=== PATIENT | female | born 1950 | race Caucasian/White ===

== ENCOUNTER 2024-04-20 13:24 | Emergency (ER) | payer MEDICARE, SELFPAY ==
--- OUTSIDE RECORDS SUMMARY | 2024-04-20 13:26 | XMS_ITS | Clinical Summary ---
Author Organization [facility] Address [address] [place] [id number] Care Team Providers Care Security Assurance Analyst Name Role Phone She Moscoso MD Primary Care Provider [phone] Allergies No known active allergies Medications meloxicam 15 mg tabletIndication s:Acute left ankle pain Take 1 Tablet (15 mg) by mouth once daily. 30 Tablet 04/03/2024 Active Active Problems Problem Noted Date Diagnosed Date Paroxysmal SVT (supraventricular tachycardia) Hyperlipidemia 11/07/2023 Family history of aortic aneurysm 11/07/2023 Prediabetes 08/21/2020 Routine general medical exam ination at a health care facility 03/21/2006 Encounters Date Type Department Care Team Description 04/03/2024 1:10 PM SPINNING LATHE OPERATOR AUTOMATIC Ancillary Procedure [facility] [address] [facility] [address] [place] [address] 04/03/2024 1:00 PM SPINNING LATHE OPERATOR AUTOMATIC Office Visit [facility] [address] [facility] [address] [place] [address] Kath Wright PA Ankle Injury (Left ankle DOI: 03/25/2024) 04/03/2024 Travel 03/15/2024 3:20 PM SPINNING LATHE OPERATOR AUTOMATIC Ancillary Procedure [facility] [address] [place] [address] 03/14/2024 Travel from Last 3 Months Immunizations Name Administration Dates Next Due COVID-19 vaccine (Moderna 10 0mcg/0.5mL) PF, MDV 05/29/2020,04/29/2020 HepA-HepB (Twinrix) 09/19/2008,04/04/2008,2007 Influenza, High-dose Quadriv alent Inactivated 12/05/2022,12/31/2021,12/21/2020 Influenza, IIV3 (Age >=3 years) 01/01/2008 Influenza, IIV4 02/17/2017 Influenza, Inactivated AIIV4 (Age 65+ Years) Preserv Free 11/11/2019 Influenza, Inactivated IIV3 (Age 65+ Years) Preserv Free 11/07/2023 Pneumococcal Conj 20-valent (Prevnar 20) 023 Pneumococcal Poly,23-Valent (Pneumovax) 08/22/19 21 Td (Age >=7 Years) 01/17/2002 Tdap 12/05/2022,04/03/2012 Yellow Fever 01/01/2008 Zoster (Shingrix-RZV, recombinant) 12/21/2020, Family History Medical History Relation Name Comments Good Health Brother Cancer Father Esophageal Canc er Heart Disease Father Triple Bypass Aortic aneurysm Maternal Grandfather Other Mother aortic aneurysm Stroke Mother aortic aneurysm 2002 Heart Disease Paternal Grandfather pacema ker Cancer-colon Paternal Uncle Cancer-breast No Family History Cancer-ovarian No Family History Relation Name Status Comments Brother Alive Father (Age 78) esophageal cancer Maternal Aunt (Age 70s) aneurysm . Maternal Grandfather (Age 70s) a neurysm Mother aortic aneurysm (Age 82) aortic aneurysm Paternal Grandfather Paternal Uncle Social History Tobacco Use Types Packs/Day Years Used Date Smoking Tobacco: Never Smokeless Tobacco: Never Tobacco Cessation:Counseling Given: Yes Alcohol Use Standard Drinks/Week Comments Yes 4 (1 standard drink = 0.6 oz pur e alcohol) PHQ-2 Answer Date Recorded PHQ-2 TOTAL SCORE 0 11/07/2023 Social Connections Answer Date Recorded Do you often feel lonely or isolated from those around you? 0 11/07/2023 Financial Resource Strain Answer Date R ecorded Difficulty of Paying Living Expenses 3 11/07/2023 Difficulty of Paying Living Expenses Not on file 11/07/2023 Food Insecurity Answer Date Recorded Do you worry your food will run out before you are able to buy more? 1 11/07/2023 Transportation Needs Answer Date Record ed Does lack of transportation keep you from medica l appointments? 1 11/07/2023 Does lack of transportation keep you from work, meetings or getting things that you need? 1 11/07/2023 Housing Stability Answer Date Recorded What is your housing situation today? 1 11/07/2023 Utilities Answer Date Recorded Do you have trouble paying f or utilities (for example, heat, electricity, water, phone)? 1 11/07/2023 Comments No Sex and Gender Information Value Date Recorded Sex Assigned at Not on file Legal Sex Female 5:24 AM SPINNING LATHE OPERATOR [employer]OMATIC Gender Identity Not on file Sexual Orientation Not on file Occupation Industry Job Start Date Job End Date [employer] Not on file Not on file Not on file Obstetrics History Para Term AB IAB SAB Ectopic Multiple Livin g Live Births 0 0 0 0 0 0 0 0 0 0 Last Filed Vital Signs Vital Sign Reading Time Taken Comments Blood Pressure 109/69 11/07/2023 1:23 PM CDT Pulse 78 11/07/2023 1:23 PM CDT Temperature 36.5 C (97.7 F) 07/10/2017 8:44 AM CDT Respiratory Rate 14 09/27/2016 10:18 AM CDT Oxygen Saturation 97% 11/07/2023 1:23 PM CDT Inhaled Oxygen Concentration - - Weight 59.1 kg (130 lb 6.4 oz) 11/07/2023 1:23 P M CDT Height 168.6 cm (5' 6.38) 11/07/2023 1:23 PM CD T Body Mass Index 20.81 11/07/2023 1:23 PM CDT Plan of Treatment Health Maintenance Due Date Last Done Comments BMI (ht and wt on same day) for age 18+ 11/06/2024 11/07/2023, 10/13/2022, 08/21/2020, Additional history exists Depression screening for age 12+ 11/06/2024 11/07/2023, 10/13/2022, 08/24/2020, Additional history exists Medicare Wellness for age 65+ 11/07/2024 11/07/2023, 10/13/2022 Mammogram for age 45-75 03/15/2025 03/15/19, 02/10/2023, 12/08/2021, Additional history exists Fecal testing sDNA-FIT ([facility]) for age 45-75 06/02/2025 06/02/2022 RSV vaccine for adults or (1 - 1-dose 75+ series) 11/10/2027 Lipids for age 45-75 11/06/2028 11/07/2023, 10/13/2022, 08/21/2020, Additional history exists Tetanus booster 12/05/2032 12/05/2022, 06/2012, 01/17/2002 Hepatitis C screening for ag e 18-79 Completed 08/21/2020 DEXA/DXA scan for age 65+ Completed 08/24/2020 Zoster (shingles) series for age 50+ Completed 12/21/2020, 08/21/2020 Pneumococcal series for age 50+ Completed , 08/21/2020 Tdap Completed 12/05/2022, 04/03/2012 Influenza for age 65+ Completed 11/07/2023 , 12/05/2022, 12/31/2021, Additional history exists COVID-19 vaccine series Completed 11/10/19, 12/05/2022, 02/11/2022, Additional history exists Procedures Procedure Name Priority Date/Time Associated Diagnosis Comments XR ANKLE 3 VIEWS LEFT Routine 04/03/2024 1:17 PM SPINNING LATHE OPERATOR [employer]OMATIC Acute left ankle pain XR MAMMO NOREEN BILAT SCREEN Routine 03/15/2024 3:25 PM SPINNING LATHE OPERATOR AUTOMATIC Visit for screening mammogram LIPID PANEL W REFLEX MEASURED LDL Routine 11/07/2023 2:15 PM CDT Hyperlipidemia, unspecified hyperlipidemia type SDNA-FIT EXTERNAL (COLOGUARD) Routine 06/02/2022 8:35 AM CDT Screening for colon cancer XR DXA BONE DENSITY 2 SITES AXIAL Routine 08/24/2020 2:20 PM CDT Postmenopausal ANTI HCV Routine 08/21/2020 9:17 AM CDT Need for hepatitis C screening test from Last 3 Months or Most Recently Relevant to Health Maintenance Results * XR ANKLE 3 VIEWS LEFT (04/03/2024 1:17 PM SPINNING LATHE OPERATOR AUTOMATIC) Anatomical Region Laterality Modality ANKLES, ANKLE L Digital Radiogra phy 04/04/2024 3:29 AM SPINNING LATHE OPERATOR AUTOMATIC Impressions 04/04/2024 3:29 AM SPINNING LATHE OPERATOR AUTOMATIC Lateral soft tissue swelling with a possible subtle nondisplaced fracture in the inferior tip of the lateral malleolus. Dictated by Gem Shay MD @ 04/04/2024 3:29:34 AM (Electronically Signed) Narrative 04/04/2024 3:29 AM SPINNING LATHE OPERATOR AUTOMATIC For Patients: As a result of the Cures Act, medical imaging exams and procedure reports are released immediately into your electronic medical record. You may view this report before your referring provider. If you have questions, please contact your health care provider. INDICATION: Acute left ankle pain. TECHNIQUE: Left ankle 3 view. COMPARISON: None. FINDINGS: Bones: There is a subtle linear lucency in the inferior tip of the lateral malleolus. Small Achilles calcaneal spur. Alignment is normal. Joint spaces: Probable ankle joint effusion. Soft tissues: Soft tissue swelling adjacent to the lateral malleolus. Procedure Note Gem Shay MD - 04/04/2024 For Patients: As a result of the Cures Act, medical imagingexams and procedure reports are released immediately into your electronicmedical record. You may view this report before your referring provider.If you have questions, please contact your health care provider. INDICATION: Acute left ankle pain. TECHNIQUE: Left ankle 3 view. COMPARISON: None. FINDINGS: Bones: There is a subtle linear lucency in the inferior tip of the lateralmalleolus. Small Achilles calcaneal spur. Alignment is normal. Joint spaces: Probable ankle joint effusion. Soft tissues: Soft tissue swelling adjacent to the lateral malleolus. IMPRESSION: Lateral soft tissue swelling with a possible subtle nondisplaced fracturein the inferior tip of the lateral malleolus. Dictated by Gem Shay MD @ 04/04/2024 3:29:34 AM (Electronically Signed) us Kath [facility] Final Resu lt * XR MAMMO NOREEN BILAT SCREEN (03/15/2024 3:25 PM SPINNING LATHE OPERATOR AUTOMATIC) Anatomical Region Laterality Modality BREASTS, Breast Left, Breast Right Bilateral Mammography Impressions 03/15/2024 3:30 PM SPINNING LATHE OPERATOR AUTOMATIC There is no radiographic evidence for malignancy. Recommend annual mammograms. MAMMOGRAM ASSESSMENT: ACR 1 Negative PATIENTS: You will also receive a letter with your examination results in an easy to read format. If you have questions about your results, please contact your referring provider. Narrative 03/15/2024 3:30 PM SPINNING LATHE OPERATOR AUTOMATIC For Patients: As a result of the Cures Act, medical imaging exams and procedure reports are released immediately into your electronic medical record. You may view this report before your referring provider. If you have questions, please contact your health care provider. XR MAMMO NOREEN BILAT SCREEN [[id number]] CLINICAL HISTORY: This is an asymptomatic 73 y.o. patient. INDICATION FOR EXAM: Mammogram Screening. TECHNIQUE: CC & MLO views were obtained. This study was evaluated with the assistance of Computer-Aided Detection. Breast Tomosynthesis was used in interpretation. COMPARISON FILM: Yes 02/10/23 [facility] FINDINGS: The breasts are heterogeneously dense, which may obscure small masses. There are no dominant masses, suspicious micro calcifications or areas of architectural distortion. us She Moscoso MD MAMMO Final Resul t * (ABNORMAL) LIPID PANEL W REFLEX MEASURED LDL (11/07/2023 2:15 PM CDT) CHOLESTEROL,TOTAL 224(H) 100 - 199 mg/dL 11/08/2023 3:48 AM CDT [facility] Comment: Cholesterol, Total Reference Ranges Desirable <200 mg/dL Borderline 200-239 mg/dL High >=240 mg/dL TRIGLYCERIDES 136 <150 mg/dL 11/08/2023 3:48 AM CDT [facility] HDL CHOLESTEROL 97 >40 mg/dL 3:48 AM CDT [facility] NON-HDL CHOLESTEROL 127 <145 mg/dl 11/08/2023 3:48 AM CDT [facility] CHOL/HDL RATIO 2.31 <4.50 11/08/2023 3:48 AM CDT [facility] LDL CHOLESTEROL 100 <=130 mg/dL 11/08/2023 3:48 AM CDT [facility] VLDL CHOLESTEROL 27 <=30 mg/dL 11/08/2023 3:48 AM CDT [facility] PROVIDER ORDERED STATUS RANDOM 11/08/2023 3:48 AM CDT [facility] Blood BLOOD SPECIMEN / Unknown Venipuncture / Unknown 11/07/2023 2:15 PM CDT 11/07/2023 2:15 PM CDT us She Moscoso MD CHEMISTRY Final Resul t [facility] [address] [place] [address], * SDNA-FIT EXTERNAL (COLOGUARD) (06/02/2022 8:35 AM CDT) NONINV COLON CA DNA+OCC BLD SCRN STL-IMP Negative Negative 06/09/2022 4:13 PM CDT [facility] (CLIA #:[id number]) Comment: NEGATIVE TEST RESULT. A negative Cologuard result indicates a low likelihood that a colorectal cancer (CRC) or advanced adenoma (adenomatous polyps with more advanced pre-malignant features) is present. The chance that a person with a negative Cologuard test has a colorectal cancer is less than 1 in 1500 (negative predictive value >99.9%) or has an advanced adenoma is less than 5.3% (negative predictive value 94.7%). These data are based on a prospective cross-sectional study of 10,000 individuals at average risk for colorectal cancer who were screened with both Cologuard and colonoscopy. (Harriet Rick, N Engl J Med 2014;370(14):5209-7567) The normal value (reference range) for this assay is negative. COLOGUARD RE-SCREENING RECOMMENDATION: Periodic colorectal cancer screening is an important part of preventive healthcare for asymptomatic individuals at average risk for colorectal cancer. Following a negative Cologuard result, the [place] [employer] Society and U.S. Multi-Society Task Force screening guidelines recommend a Cologuard re-screening interval of 3 years. References: [place] [employer] Guideline for Colorectal Cancer Screening: https://www.cancer.org/cancer/hrqaz-fiypdg-xwuhxg/ypadjlvki-nfrjechnv-ayztozi/ac s-rec ommendations.html.; Lawrence DK, Joana BAH, Monica TaylorK, Colorectal Cancer Screening: Recommendations for Physicians and Patients from the U.S. Multi-Society Task Force on Colorectal Cancer Screening , Am J Gastroenterology 2017; 112:8638-4178. TEST DESCRIPTION: Composite algorithmic analysis of stool DNA-biomarkers with hemoglobin immunoassay. Quantitative values of individual biomarkers are not reportable and are not associated with individual biomarker result reference ranges. Cologuard is intended for colorectal cancer screening of adults of either sex, 45 years or older, who are at average-risk for colorectal cancer (CRC). Cologuard has been approved for use by the U.S. FDA. The performance of Cologuard was established in a cross sectional study of average-risk adults aged 50-84. Cologuard performance in patients ages 45 to 49 years was estimated by sub-group analysis of near-age groups. Colonoscopies performed for a positive result may find as the most clinically significant lesion: colorectal cancer [4.0%], advanced adenoma (including sessile serrated polyps greater than or equal to 1cm diameter) [20%] or non- advanced adenoma [31%]; or no colorectal neoplasia [45%]. These estimates are derived from a prospective cross-sectional screening study of 10,000 individuals at average risk for colorectal cancer who were screened with both Cologuard and colonoscopy. (Harriet Rick, N Engl J Med 2014;370(14):0602-3775.) Cologuard may produce a false negative or false positive result (no colorectal cancer or precancerous polyp present at colonoscopy follow up). A negative Cologuard test result does not guarantee the absence of CRC or advanced adenoma (pre-cancer). The current Cologuard screening interval is every 3 years. ([place] [employer] Society and U.S. Multi-Society Task Force). Cologuard performance data in a 10,000 patient pivotal study using colonoscopy as the reference method can be accessed at the following location: www.Sybari.Xention/results. Additional description of the Cologuard test process, warnings and precautions can be found at [email or web address]. Stool specimen (specimen) (Rectum) 06/02/2022 8:35 AM CDT 06/02/2022 2:17 PM CDT us She Moscoso MD URINE Final Resul t [facility] (CLIA #:[id number]) [place] [address], * (ABNORMAL) XR DXA BONE DENSITY 2 SITES AXIAL [81012.1] (08/24/2020 2:20 PM CDT) Anatomical Region Laterality Modality Spine, HIPS, HIPL, HIPR Other Impressions 09/04/2020 4:50 PM CDT Osteopenia. RECOMMENDATIONS: The National Osteoporosis Foundation recommends pharmacologic treatment for patients with T-scores of -2.5 or less, patients with prior history of fragility fractures, or patients with 10-year probability of greater than 3% at hips or greater than 20% of suffering major osteoporotic fractures. Recommend continued optimization of calcium and vitamin D intake through dietary means and/or supplementation and regular exercise. Repeat scan recommended in 3-5 years. Mya Valentino PA-C Narrative 09/04/2020 4:50 PM CDT XR DXA Bone Mineral Density (BMD) EXAM LOCATION: [address] [address] PATIENT NAME: Goldie Lucia DATE OF : 1950 EXAM DATE: 08/24/2020 REQUESTING PROVIDER: She Moscoso MD GENDER AT : female HEIGHT: 5' 6.58 (08/21/2020) WEIGHT: 146 lb 6.4 oz (08/21/2020) MENOPAUSAL STATUS: Postmenopausal RACE/ETHNICITY: White RISK FACTORS: No Risk Factors CURRENT MEDICATION FOR BONE LOSS: NONE INDICATION: Initial scan for screening COMPARISON DATE(S): None DXA scans are compared to prior studies for a patient only when the two (or more) studies were performed on the same scanner. It is not possible to compare data generated on one scanner to data from another because there are not standards in DXA equipment. This applies even if the two scanners are made by the same jumpbasting canvas baster. PROCEDURE: Dual-energy x-ray absorptiometry performed with routine technique. Reporting is completed in the form of a T-score. The T-score represents the standard deviation from peak bone mass based on young healthy adult. A Z-score is used for diagnosis in premenopausal women, and for men under the age of 50. FINDINGS: RESULT LUMBAR SPINE L1 - L4 BMD: 1.251 g/cm2 T-Score: + 0.5 Z-Score: + 2.0 Comparison to most recent scan : None Comparison to baseline scan : None RESULT FEMORAL NECK Left Total Femoral Neck BMD: 0.818 g/cm2 T-Score: - 1.6 Z-Score: + 0.0 Comparison to most recent scan : None Comparison to baseline scan : None RESULT TOTAL HIP Bilateral Total Hip BMD: 0.903 g/cm2 T-Score: - 0.8 Z-Score: + 0.5 Comparison to most recent scan : None Comparison to baseline scan : None WHO criteria: Normal: T-score at or above -1 SD Osteopenia: T-score between -1.1 and -2.4 SD Osteoporosis: T-score at or below -2.5 SD FRAX RISK CALCULATION (USED FOR OSTEOPENIA ONLY): 10-year probability of major osteoporotic fracture: 9.4%. 10-year probability of hip fracture: 1.3%. us She Moscoso MD DEXA Final Resul t * ANTI HCV (08/21/2020 9:17 AM CDT) Pathologist [facility] HEPATITIS C ANTIBODY Non-React jose e Non-React jose e 08/21/2020 5:06 PM CDT [facility] Comment:Antibodies to HCV no t detected; does not exclude the possibility of exposure to HCV. Blood BLOOD SPECIMEN / Unknown Venipuncture / Unknown 08/21/2020 9:17 AM CDT 08/21/2020 9:18 AM CDT She Moscoso MD SEND OUTS Final Resul t [facility] [address] [place] [address], [place] from Last 3 Months or Most Recently Relevant to Health Maintenance Insurance [employer] MED[employer]ARE [employer]VANTAGE Advance Directives Documents on File Type Date Recorded Patient Ceo Na Expl anation Healthcare Directive 03/04/2021 022 Care Teams Security Assurance Analyst Relationship Specialty Start Date End Date She Moscoso MD [address] [place] [address] PCP - General Family Practice 07/10/17
[2024-04-20 13:55] VITALS: BP 122/84; PULSE 93; RESP 18; TEMP 36.7; O2SAT 95; BMI 20.2
--- NOTE | 2024-04-20 14:59 | ED.GENADULT ---
HPI - General Adult General Date Seen: 04/20/24 Chief complaint: Fall/Minor Trauma Stated complaint: Fell and thinks broke right pinky Time Seen by Provider: 04/20/24 14:59 History of Present Illness HPI narrative: Very pleasant 73-year-old female presenting to the ER today with concern for a right hand 5th digit (pinky finger) injury. She was walking her friend's dog this afternoon. The dog is very energetic and pulled her off balance and she fell forward. She jammed her pinky against the ground she fell and injured it. She has a deformity at the MCP joint or possibly in the proximal phalanges of that pinky. She is able to wiggle the distal part of the pinky and has no numbness but had does have bruising and deformity of the proximal and the pinky. No other injury to her hand or wrist or thumb. She might have bumped her elbow but does not even have a scraper any pain there. No other injury to her arm or shoulder. She lightly scraped the side of her head against the ground and has a tiny scrape on her left lateral eyebrow. She did not really think she hit her head. No loss of consciousness. No headache. Vision is normal in both eyes. No neck pain. No back pain. No injury to her ribs, torso. No hip or pelvic injury. No injury to her lower extremities. She is generally healthy. She takes no medications. Related Data Home Medications ?Medication ?Instructions ?Recorded ?Confirmed No Known Home Medications 04/20/24 04/20/24 Allergies Allergy/AdvReac Type Severity Reaction Status Date / Time No Known Drug Allergies Allergy Verified 04/20/24 14:00 Exam Narrative: Exam Narrative: Constitutional: Appears well-developed and well-nourished. Alert. Conversant. Non toxic. HENT: Head: Superficial abrasion on right lateral eyebrow. No underlying hematoma. No depressed skull fracture, Raccoon Eyes, Bravo's sign, or hemotympanum. Face normal. TMs normal Nose: Nose normal. Mouth/Throat: Oral mucosa is clear and moist. no trismus. Pharynx normal. Tonsils symmetric. No tonsillar enlargement, erythema, or exudate. Eyes: Conjunctivae normal. EOM normal. Pupils equal, round, and reactive to light. No scleral icterus. Neck: Normal range of motion. Neck supple. No tracheal deviation present. No posterior midline tenderness or step-off. Cardiovascular: Normal rate, regular rhythm. No gallop. No friction rub. No murmur heard. Symmetric radial artery pulses . Normal cap refill in her injured 5th right finger tip. Pulmonary/Chest: Effort normal. No stridor. No respiratory distress. No wheezes. No rales. No rhonchi . No tenderness. Musculoskeletal: No back tenderness. RUE: Clavicle, humerus, shoulder, biceps, triceps are normal and nontender. Elbow normal inspection. No abrasion. No bruising. Normal range of motion. Normal pronation/supination of the forearm. No bony tenderness of the radius or ulna. Wrist is nontender. No swelling. Hand. There is visible deformity with an apparent volar displaced MCP joint dislocation of the 5th finger or possibly a volarly displaced fracture of the proximal phalanges. Other than that her hand is normal. Thumb, 2nd digit, 3rd digit, 4th digit are normal and nontender. Intact radial, median, ulnar sensory function. Intact her digital nerve function in the 5th injured 5th digit. Normal distal cap refill in the 5th digit. LUE: Normal range of motion. No tenderness. No deformity RLE: Normal range of motion. No edema. No tenderness. No deformity LLE: Normal range of motion. No edema. No tenderness. No deformity Neurological: Alert and oriented to person, place, and time. Normal strength. CN II-VII intact. No sensory deficit. GCS eye subscore is 4. GCS verbal subscore is 5. GCS motor subscore is 6. Normal coordination Skin: Skin is warm and dry. No rash noted. No pallor. Normal capillary refill. Psychiatric: Normal mood. Normal affect. Or Const: Vital Signs, click to edit/add: Vital Signs - 24 hr 04/20/24 13:55 Temperature 98.1 F Pulse Rate [Pulse Oximeter] 93 Respiratory Rate 18 Blood Pressure [Le ft Upper Arm] 122/84 Pulse Oximetry 95 Oxygen Delivery Me thod Room Air Course Course ED Course: Recheck-I reviewed the patient's finger x-rays. She does have a angulated fracture through the midshaft of the proximal phalanges of the 5th digit. The distal fragment is angulated dorsally. Procedure: Digital block right hand, 5th digit (pinky finger) Verbal consent Sterile prepped using Betadine Local infiltration of 0.25% bupivacaine, 3 mL from the volar approach. Good anesthesia was achieved. No complications noted. Procedure: Reduction and splint placed After digital block I did apply distal traction on the angulated fracture fragment and achieved visible straightening of the deformed proximal phalanges. Patient was then vi-taped between the 5th and 4th digits over with gauze padding. Her 5th digit was placed into a [place] splint with careful attention played 2 to a maintaining the alignment of the fractured phalanges. Splint was secured in place using hypoallergenic tape. Patient tolerated splinting well. After splinting the reduction remained intact. She had intact distal cap refill and normal pink loss distal perfusion of the fingers. Vital Signs Vital signs: Initial Vital Signs Temperature 98.1 F 04/20/24 13:55 Temperature Source Temporal Artery Scan 04/20/24 13:55 Pulse Rate 93 04/20/24 13:55 Respiratory Rate 18 04/20/24 13:55 Blood Pressure 122/84 04/20/24 13:55 Blood Pressure Mean 96 04/20/24 13:55 Blood Pressure Position Sitting 04/20/24 13:55 Pulse Oximetry 95 04/20/24 13:55 Oxygen Delivery Method Room Air 04/20/24 13:55 Vital Signs Temperature 98.1 F 04/20/24 13:55 Pulse Rate 93 04/20/24 13:55 Respiratory Rate 18 04/20/24 13:55 Blood Pressure 122/84 04/20/24 13:55 Pulse Oximetry 95 04/20/24 13:55 Oxygen Delivery Method Room Air 04/20/24 13:55 Temperature 98.1 F 04/20/24 13:55 Pulse Rate 93 04/20/24 13:55 Respiratory Rate 18 04/20/24 13:55 Blood Pressure 122/84 04/20/24 13:55 Pulse Oximetry 95 04/20/24 13:55 Oxygen Delivery Method Room Air 04/20/24 13:55 Medications Administered Medications: Discontinued Medications Generic Name Dose Route Start Last Admin Trade Name Freq PRN Reason Stop Dose Admin Acetaminophen 1,000 mg 04/20/24 15:07 04/20/24 15:18 Acetaminophen 500 Mg Tablet PO 04/20/24 15:08 1,000 mg ONCE ONE Administration Medical Decision Making MDM Narrative Medical decision making narrative: Very pleasant 73-year-old female presenting to the ER today with a ground level fall. She was pulled off balance today will while walking her friend's dog. She is generally healthy. She takes no medications and no anticoagulants. No history of bleeding disorder Her main concern is that she injured her right hand 5th digit (pinky finger). Exam and x-ray show a dorsally angulated fracture through the proximal phalanges. After digital block I did perform reduction until the angulation was corrected in the finger was out to length. Patient was then placed into vi taping and a little foam splint to maintain the reduction. She remained vascularly intact. She does have a very superficial abrasion on the right lateral eyebrow but no other signs of head trauma. Given age, consider head CT. However she really says she only lightly scraped her head and does not have a headache or loss of consciousness. Using shared decision making we decided to hold off on CT. She has a superficial abrasion there with that would not benefit from sutures or benjie. She is up-to-date on tetanus No other injuries from this ground level fall. She verbalizes her understanding of discharge instructions. Precautions for return to the ER reviewed. Need for outpatient follow-up with Ortho within 5-6 days. Imaging Data XR finger, right 5th: Attestation: I have reviewed the pertinent imaging results. My impression: Dorsally angulated fracture here proximal phalanges Radiologist's impression: Findings: There there is a displaced and apex volar angulated fracture of the proximal 5th phalangeal shaft. No intra-articular extension. The distal fracture fragment is displaced 2 millimeters dorsally/medially with respect to the proximal fracture fragment. No traumatic subluxation. There is soft tissue swelling surrounding the finger. Impression: 1. Displaced and apex volar angulated fracture of the proximal 5th phalangeal shaft. No intra-articular extension. Discharge Plan Discharge Clinical Impression: Finger fracture, right, Abrasion of eyebrow Patient Disposition: Home, Self-Care Condition: Stable Instructions: Finger Fracture (ED) Additional Instructions: As we discussed, keep the splint in place on your finger until you follow-up with orthopedics. Try to keep your right hand clean and dry. Avoid driving or lifting objects with her right hand. To help with pain and swelling use ice for 15-20 minutes every 3-4 hours. For pain you can use Tylenol or [id number] ibuprofen. Use the prescription pain killer that you already have at home if needed for more severe pain If your finger becomes Holcomb or if your splint falls off or if you have any concerns such as worsening pain, new numbness in your finger, or any problems, please come back to the emergency room right away Please schedule a recheck ER follow-up appointment with the [facility] within 5-6 days. Call Monday to schedule an ER follow-up appointment. [phone]. Prescriptions: No Action No Known Home Medications Follow Up/Referrals: Provider,Not a Local [Primary Care Provider] - Stand Alone Forms: [employer] Info Instructions
--- NOTE | 2024-04-20 15:07 | CRLHL7_ITS ---
For Patients: As a result of the Cures Act, medical imaging exams and procedure reports are released immediately into your electronic medical record. You may view this report before your referring provider. If you have questions, please contact your health care provider. Indication: Right 5th digit injury. Technique: Four views of the right 5th finger. Comparison: None. Findings: There there is a displaced and apex volar angulated fracture of the proximal 5th phalangeal shaft. No intra-articular extension. The distal fracture fragment is displaced 2 millimeters dorsally/medially with respect to the proximal fracture fragment. No traumatic subluxation. There is soft tissue swelling surrounding the finger. Impression: 1. Displaced and apex volar angulated fracture of the proximal 5th phalangeal shaft. No intra-articular extension. Dictated by Carlos Bro MD @ 04/20/2024 3:40:59 PM (Electronically Signed)
[2024-04-20] MEDS: ACETAMINOPHEN 500 MG TABLET 1000 MG PO (15:18)
--- OUTSIDE RECORDS SUMMARY | 2024-04-20 15:56 | XMS_ITS | Clinical Summary ---
Author Organization [facility] Address [address] [place] [id number] Care Team Providers Care Assistant Signal Maintainer Name Role Phone She Moscoso MD Primary Care Provider Allergies No known active allergies Medications meloxicam [...] Department Care Team Description 04/03/2024 1:10 PM FINISH CLEANER Ancillary Procedure [facility] [address] [facility] [address] [place] [address] 04/03/2024 1:00 PM FINISH CLEANER Office Visit [facility] [address] [facility] [address] [place] [address] Kath Wright PA Ankle Injury (Left ankle DOI: 03/25/2024) 04/03/2024 Travel 03/15/2024 3:20 PM FINISH CLEANER Ancillary Procedure [facility] [address] [place] [address] 03/14/2024 Travel from Last 3 Months Immunizations [...] on file Legal Sex Female 5:24 AM FINISH CLEANER Gender Identity Not on file Sexual Orientation [...] 12/08/2021, Additional history exists Fecal testing sDNA-FIT (Portal guard) for age 45-75 06/02/2025 06/02/2022 RSV [...] 3 VIEWS LEFT Routine 04/03/2024 1:17 PM FINISH CLEANER Acute left ankle pain XR MAMMO NOREEN BILAT SCREEN Routine 03/15/2024 3:25 PM FINISH CLEANER Visit for screening mammogram LIPID PANEL W [...] ANKLE 3 VIEWS LEFT (04/03/2024 1:17 PM FINISH CLEANER) Anatomical Region Laterality Modality ANKLES, ANKLE L Digital Radiogra phy 04/04/2024 3:29 AM FINISH CLEANER Impressions 04/04/2024 3:29 AM FINISH CLEANER Lateral soft tissue swelling with a possible subtle nondisplaced fracture in the inferior tip of the lateral malleolus. Dictated by Gem Shay MD @ 04/04/2024 3:29:34 AM (Electronically Signed) Narrative 04/04/2024 3:29 AM FINISH CLEANER For Patients: As a result of the [...] MAMMO NOREEN BILAT SCREEN (03/15/2024 3:25 PM FINISH CLEANER) Anatomical Region Laterality Modality BREASTS, Breast Left, Breast Right Bilateral Mammography Impressions 03/15/2024 3:30 PM FINISH CLEANER There is no radiographic evidence for malignancy. Recommend annual mammograms. MAMMOGRAM ASSESSMENT: ACR 1 Negative PATIENTS: You will also receive a letter with your examination results in an easy to read format. If you have questions about your results, please contact your referring provider. Narrative 03/15/2024 3:30 PM FINISH CLEANER For Patients: As a result of the Cures Act, medical imaging exams and procedure reports are released immediately into your electronic medical record. You may view this report before your referring provider. If you have questions, please contact your health care provider. XR MAMMO NOREEN BILAT SCREEN [[id number]] CLINICAL HISTORY: This is an asymptomatic 73 y.o. patient. INDICATION FOR EXAM: Mammogram Screening. TECHNIQUE: CC & MLO views were obtained. This study was evaluated with the assistance of Computer-Aided Detection. Breast Tomosynthesis was used in interpretation. COMPARISON FILM: Yes 02/10/23 [facility] FINDINGS: The breasts are heterogeneously dense, which may obscure small masses. There are no dominant masses, suspicious micro calcifications or areas of architectural distortion. us She Moscoso MD MAMMO Final Resul t * (ABNORMAL) LIPID PANEL W REFLEX MEASURED LDL (11/07/2023 2:15 PM CDT) CHOLESTEROL,TOTAL 224(H) 100 - 199 mg/dL 11/08/2023 3:48 AM CDT [facility] Comment: Cholesterol, Total Reference Ranges Desirable <200 mg/dL Borderline 200-239 mg/dL High >=240 mg/dL TRIGLYCERIDES 136 <150 mg/dL 11/08/2023 3:48 AM CDT [facility] HDL CHOLESTEROL 97 >40 mg/dL 3:48 AM CDT [facility] NON-HDL CHOLESTEROL 127 <145 mg/dl 11/08/2023 3:48 AM CDT [facility] CHOL/HDL RATIO 2.31 <4.50 11/08/2023 3:48 AM CDT [facility] LDL CHOLESTEROL 100 <=130 mg/dL 11/08/2023 3:48 AM CDT [facility] VLDL CHOLESTEROL 27 <=30 mg/dL 11/08/2023 3:48 AM CDT [facility] PROVIDER ORDERED STATUS RANDOM 11/08/2023 3:48 AM CDT [facility] Blood BLOOD SPECIMEN / Unknown Venipuncture / Unknown 11/07/2023 2:15 PM CDT 11/07/2023 2:15 PM CDT us She Moscoso MD CHEMISTRY Final Resul t [facility] [address] [place] [address], * SDNA-FIT EXTERNAL (COLOGUARD) (06/02/2022 8:35 AM CDT) NONINV COLON CA DNA+OCC BLD SCRN STL-IMP Negative Negative 06/09/2022 4:13 PM CDT [facility] (CLIA #:[id number]) Comment: NEGATIVE TEST RESULT. A negative Cologuard [...] colonoscopy. (Harriet Rick, N Engl J Med 2014;370(14):3726-3235) The normal value (reference range) for this assay is negative. COLOGUARD RE-SCREENING RECOMMENDATION: Periodic colorectal cancer screening is an important part of preventive healthcare for asymptomatic individuals at average risk for colorectal cancer. Following a negative Cologuard result, the [place] [employer] and U.S. Multi-Society Task Force screening guidelines recommend a Cologuard re-screening interval of 3 years. References: [place] [employer] Guideline for Colorectal Cancer Screening: https://www.cancer.org/cancer/fgtkv-hsjtzq-bjdtze/cavrwfwzs-jihxyngwz-quuxobr/ac s-rec ommendations.html.; Lawrence DK, Joana BAH, Monica TaylorK, Colorectal Cancer Screening: Recommendations for Physicians and Patients from the U.S. Multi-Society Task Force on Colorectal Cancer Screening , Am J Gastroenterology 2017; 112:3310-9983. TEST DESCRIPTION: Composite algorithmic analysis of stool [...] colonoscopy. (Harriet Rick, N Engl J Med 2014;370(14):6480-2508.) Cologuard may produce a false negative or false positive result (no colorectal cancer or precancerous polyp present at colonoscopy follow up). A negative Cologuard test result does not guarantee the absence of CRC or advanced adenoma (pre-cancer). The current Cologuard screening interval is every 3 years. ([place] [employer] and U.S. Multi-Society Task Force). Cologuard performance data in a 10,000 patient pivotal study using colonoscopy as the reference method can be accessed at the following location: www.[place].CRV/results. Additional description of the Cologuard test process, warnings and precautions can be found at www.[employer].com. Stool specimen (specimen) (Rectum) 06/02/2022 8:35 AM CDT 06/02/2022 2:17 PM CDT us She Moscoso MD URINE Final Resul t [facility] (CLIA #:[id number]) [place] [address], * (ABNORMAL) XR DXA BONE DENSITY 2 SITES AXIAL [99894.1] (08/24/2020 2:20 PM CDT) Anatomical Region Laterality [...] DXA Bone Mineral Density (BMD) EXAM LOCATION: [address] [address] PATIENT NAME: Goldie Lucia DATE OF : [...] two scanners are made by the same clothes model. PROCEDURE: Dual-energy x-ray absorptiometry performed with routine [...] ANTI HCV (08/21/2020 9:17 AM CDT) Pathologist [facility] HEPATITIS C ANTIBODY Non-React jose e Non-React jose e 08/21/2020 5:06 PM CDT [facility] Comment:Antibodies to HCV no t detected; does not exclude the possibility of exposure to HCV. Blood BLOOD SPECIMEN / Unknown Venipuncture / Unknown 08/21/2020 9:17 AM CDT 08/21/2020 9:18 AM CDT She Moscoso MD SEND OUTS Final Resul t [facility] [address] [place] [address], [place] from Last 3 Months or Most Recently Relevant to Health Maintenance Insurance [employer] Advance Directives Documents on File Type Date Recorded Patient Certified Substance Abuse Counselor Expl anation Healthcare Directive 03/04/2021 022 Care Teams Assistant Signal Maintainer Relationship Specialty Start Date End Date She Moscoso MD [address] [place] [address] PCP - General Family Practice 07/10/17
== END 2024-04-20 16:39 | disposition home or self-care (01) ==
PROVIDERS: Emergency Provider Emergency Medicine
DX: S62.606A Fracture of unspecified phalanx of right little finger, initial encounter for closed fracture (principal); S00.211A Abrasion of right eyelid and periocular area, initial encounter; W01.0XXA Fall on same level from slipping, tripping and stumbling without subsequent striking against object, initial encounter; Y93.K1 Activity, walking an animal
CPT/HCPCS: 73140; 99283; A9270

== ENCOUNTER 2024-05-03 06:15 | Day surgery (SDC) | payer MEDICARE, SELFPAY ==
[2024-05-03 06:28] VITALS: BMI 20.9
[2024-05-03] MEDS: LACTATED RINGERS 1000 ML 1,000 ML 100 ML IV (06:33)
[2024-05-03] MEDS: SODIUM CHLORIDE 0.9 % (FLUSH) 10 ML SYRINGE IVF (06:34)
[2024-05-03 06:59] VITALS: BP 112/77; PULSE 71; RESP 16; TEMP 36.4; O2SAT 98
--- NOTE | 2024-05-03 07:15 | W.PM.H&PU ---
History & Physical Update History & Physical Update H&P Reviewed and patient assessed: No changes noted
--- NOTE | 2024-05-03 07:16 | PM.ORPRC ---
Procedure Note Date of procedure: 05/03/24 Procedure: PREOPERATIVE DIAGNOSIS: 1. Right small finger proximal phalanx fracture, closed, displaced POSTOPERATIVE DIAGNOSIS: 1. Right small finger proximal phalanx fracture, closed, displaced PROCEDURE: 1. Closed reduction percutaneous pinning right small finger proximal phalanx fracture SURGEON: Drew Frederick MD. AUTOMATIC MAINTAINER: Yamini Guzman P.A.-C. - An mail handler assistant was critical for this case to aid in patient positioning, limb manipulation/positioning, and splint application. ANESTHESIA: Axillary nerve block with monitored anesthesia care IMPLANTS: 0.035 K-wires x2 TOURNIQUET: Not utilized ESTIMATED BLOOD LOSS: 0 mL COMPLICATIONS: None INDICATIONS: The patient is a pleasant 73-year-old female who sustained a right small finger proximal phalanx fracture. She was initially treated with closed reduction and splinting, but fracture was unstable and could not be maintained in a satisfactory position. Recommendation subsequent made for surgical intervention consisting of closed reduction and percutaneous pinning. Prior to surgery risks and benefits of the procedure were discussed with patient, all questions were answered, and informed consent was obtained. FINDINGS: Displaced, transverse right small finger proximal phalanx shaft fracture. DESCRIPTION OF PROCEDURE: Patient was seen preoperatively and operative site was marked. An axillary nerve block was performed by anesthesia staff. Patient was then brought to the operating room and placed supine on the operating table. Monitored anesthesia care was provided and patient was given 1 g IV Ancef for prophylaxis. The right upper extremity was prepped and draped in usual sterile fashion. A surgical time-out was performed confirming patient identity, surgical site, surgical procedure. Fluoroscopic imaging was utilized and closed reduction was performed. After obtaining satisfactory alignment, a 0.035 K-wire was inserted from the proximal ulnar dorsal aspect of the proximal phalanx into the intramedullary canal across the fracture site into the distal fragment. Fluoroscopic imaging confirmed satisfactory alignment of the fracture. A 2nd 0.035 K-wire was then inserted from the proximal radial dorsal aspect of the proximal phalanx into the intramedullary canal across the fracture site into the distal fragment. Fluoroscopic images were obtained in multiple planes confirming satisfactory pin placement and fracture alignment. Fractures were confirmed to be extra articular. Five fluoroscopic imaging confirmed stability of fracture with gentle finger range of motion. Sterile dressings were applied followed by the application of an ulnar gutter splint with the small and ring fingers in the intrinsic plus position. Patient was then woken from anesthesia transferred to the PACU in stable condition. PLAN: 1. Keep splint clean and dry. 2. Tylenol and/or oxycodone as needed for pain control. 3. Ice and elevation for pain and swelling. 4. Follow-up with occupational therapy next week to be placed in a removable orthosis immobilizing the small finger in the intrinsic plus position. -May begin gentle passive range of motion exercises in 1-2 weeks. 5. Follow-up in orthopedic clinic next week for wound check. -Follow-up with Dr. Frederick in 3-4 weeks.
[2024-05-03] MEDS: fentaNYL 100 MCG/2 ML inj IVP (07:24)
[2024-05-03] MEDS: MIDAZOLAM HCL 1 MG/ML inj IVP (07:24)
[2024-05-03 07:25] VITALS: BP 92/64; PULSE 64; RESP 16; O2SAT 100
--- NOTE | 2024-05-03 07:37 | SUR.PREOP ---
TIME?OUT:?0725 PT/RN/MDA?VERIFICATION?OF?SURGICAL?SITE,?PROCEDURE,?AND?CONSENT OBTAINED?PRIOR?TO?INVASIVE?PROCEDURE.
[2024-05-03] MEDS: CEFAZOLIN 1 GM inj IVP (07:45)
--- NOTE | 2024-05-03 07:55 | SUR.OPER ---
PATIENT QUESTIONS ANSWERED SATISFACTORILY PREOPERATIVELY. PATIENT BROUGHT TO OR 4# PER CART. Patient positioned supine on OR #4 bed. The perioperative team supported arms bilaterally on arm boards. Final approval of positioning by surgeon.
--- NOTE | 2024-05-03 08:08 | P.NB_ITS ---
Nerve Block Nerve Block Time Seen by Provider: 07:28 Date Seen: 05/03/24 Type of block requested by surgeon for post-operative analgesia: axillary Side: right Time out performed: Yes Verification of patient name: Yes Verification of date of : Yes Site marking: site marked Name of person performing procedure: Davie Continuous monitoring Was continuous monitoring of O2 sat, B/P, topstitcher lockstitch, recorded every 15 minutes?: Yes Procedure Checklist: sterile prep, needles and gloves Ultrasound guided. Images saved: Yes Medications given in 5ml increments after negative aspiration: Ropivicaine %: 0.5 mL: 10 Needle gauge: 22 and Lidocaine %: 2 mL: 15 Patient tolerated procedure well: Yes Additional comments: Needle noted adjacent to nerve Block Charges Block Charge (with Pro Fee): Brachial Plexus Use of Ultrasound Machine for Block: Yes- US Guidance/pain block
--- NOTE | 2024-05-03 08:08 | W.ANESCHARGE ---
Anesthesia Charges Start Date/Time Anesthesia Start Date: 05/03/24 Anesthesia Start Time: 07:35 Stop Date/Time Anesthesia Stop Date: 05/03/24 Anesthesia Stop Time: 08:30 Summary Extremes of Age - Over 70 or under 1: MDA Coding CPT Codes CPT Codes: ANESTH LOWER ARM SURGERY - 35178 ([id number]) P1 - NORMAL HEALTHY PATIENT, QK - FIELD SALES AGENT 2-4 CNCRNT ANES PROC, QX - ARCHITECTURAL PROJECT CAPTAIN SVC W/ MD MED DIRECTION Additional Codes: Summary - Extremes of Age - Over 70 or under 1: MDA ([id number])
--- NOTE | 2024-05-03 08:31 | W.ANESCHARGE ---
Anesthesia Charges Start Date/Time Anesthesia Start Date: 05/03/24 Anesthesia Start Time: 07:35 Stop Date/Time Anesthesia Stop Date: 05/03/24 Anesthesia Stop Time: 08:30 Summary Extremes of Age - Over 70 or under 1: DIRECTOR OPERATIONS BROADCAST Coding CPT Codes CPT Codes: ANESTH LOWER ARM SURGERY - 03879 ([id number]) P1 - NORMAL HEALTHY PATIENT, QK - REMOTE SENSING SCIENTIST 2-4 CNCRNT ANES PROC, QX - DIRECTOR OPERATIONS BROADCAST SVC W/ MD MED DIRECTION Additional Codes: Summary - Extremes of Age - Over 70 or under 1: DIRECTOR OPERATIONS BROADCAST ([id number])
[2024-05-03 08:33] VITALS: BP 100/72; PULSE 56; RESP 16; TEMP 36.4; O2SAT 93
[2024-05-03 08:47] VITALS: BP 99/73; PULSE 53; RESP 16; O2SAT 94
[2024-05-03 09:03] VITALS: BP 115/60; PULSE 68; RESP 16; TEMP 36.5; O2SAT 96
== END 2024-05-03 09:33 | disposition home or self-care (01) ==
PROVIDERS: PCP Family Medicine; Visit Provider Orthopaedic Surgery
PROC: (CPT 26727; principal; 2024-05-03 07:30)
DX: S62.616A Displaced fracture of proximal phalanx of right little finger, initial encounter for closed fracture (principal); G89.18 Other acute postprocedural pain
CPT/HCPCS: 26727; 01820; 01830; 64415; 73140; 76942; 99100; J0690; J2250; J2405; J2704; J2795; J3010; J7120

== ENCOUNTER 2024-05-17 13:00 | Outpatient (RCR) | payer MEDICARE, SELFPAY | END 2024-09-14 23:59 | disposition home or self-care (01) | PROVIDERS: PCP Family Medicine; Visit Provider Physician Assistant | DX: S93.492D Sprain of other ligament of left ankle, subsequent encounter (principal); Z51.89 Encounter for other specified aftercare | CPT/HCPCS: 97110; 97161 ==

== ENCOUNTER 2024-08-19 13:15 | Outpatient (RCR) | payer MEDICARE, SELFPAY ==
--- NOTE | 2024-05-07 17:24 | OT.OPOE ---
OT Outpatient Ortho Eval OT Outpatient Ortho Eval* Start: 05/07/24 16:52 Freq: Status: Active Protocol: Document 05/07/24 16:52 LCN (Rec: 05/07/24 17:18 LCN [id number]) E-signed By Mame Gordillo, OTR/L, CLT OT OP Ortho Eval Details Complexity Complexity Low Insurance Information Insurance Information Medicare B,UCARE Outpatient History/Precautions Current Condition/Medical Diagnosis Referring Provider Dr. Frederick PCP is [facility] Diagn[facility] s/p R 5th digit phalanx with CRPP wire fixation procedure Treatment Diagnosis finger stiffness, pain, ROM and strength loss in R hand/ fingers Date of Onset 04/20/24 Medical Conditions HTN Other Conditions Pre DM, hyperlipidemia, PSVT/ Paroxysmal Supraventricular tachycardia. H/O back surgery. Currently seeing PT for recent ankle sprain the month prior. Medical/Functional History Medical History Reviewed Yes Prior Level of Function/Mobility Pt is an avid walker, enjoys light hiking, travelling and reading. Social History Hobbies weaving Fitness active life style, non-gym user. Ortho Subjective Subjective Subjective Goldie Breana Lucia is an active 73 y/o female who fell onto her outstretched R hand on 04/20/24 while walking a friend's larger dog for her. Was seen in ER, treated for R small finger fracture with closed reduction and alumosplint. Was cleared for other R UE or head trauma, did have a scrape on L side of her head. Was seen in Ortho for further attempt of closed reduction per dorsal angulation, reduced from 70% to 50% and scheduled for reduction with CRPP pinning on 05/03/24 and placed in fiberglass trough with padding and DOYLE compression over the top. Doing well with her pain , using Tylenol and is sleeping well. Pain Assessment Pain Pain Yes Pain Comments 2-4/10, manages with Tylenol. Range of Motion and Strength Wrist Range of Motion and Strength Wrist Range of Motion and Strength All R shoulder, elbow and wrist planes have full ROM, painfree. IF/MF full fist. Thumb opposes to base of SF, full extension/circumduction. Ring finger to 3.0 cm composite flexion with MCP 45 of 90, 80 of 110 PIP and 20 of 45 DIP. Small Finger-- PIP to 20 of 110, DP to 10 of 45. OT Problems Problems Problems Decreased Strength,Decreased Range of Motion,Decreased Dexterity,Pain,Lifting, Gripping,Pinching Other Problems Writing,Opening Containers, Dressing,Computer,Fasteners Patient Potential Excellent Assessment Assessment Assessment Given Goldie's edema, pain, ROM and strength loss of R hand/ring and small fingers limiting daily tasks, she would benefit from skilled OT to address these areas. Occupational Therapy Treatment Plan - OP Potential Rehabilitation Potential Excellent Set Goals Goals Set with Patient Yes Goals Goals In 8 weeks, pt will demonstrate:? 1) Decreased pn to <2/10 80% of the time with sustained gripping, carrying groceries, reading books and weaving. 2) I HEP for stretching, gradual strengthening and self mgmt strategies. 3) improved R campus security officer closure, full digit opening, campus security officer strength to 35# and pinch to > 10# with R small /ring finger pain < 1/10. 4)??Pt to be fit with functional bracing (for R RF/ SF and wrist) and use adaptive strategies to protect joint integrity to support less pain with ADL. Target Date t+90 Treatment Plan Treatment Plan Evaluation,Edema Control,Joint Mobilization,Manual Therapy, Splinting,Therapeutic Exercise ,Self Care/Home Management, Education Expected Frequency 1-2x Week Expected Duration 8-10 Weeks Home Program Home Program Home Program Initiated Home Program Specifics Splint wear, care/precautions, pin care. Wrist, DIP and PIP blocking of RF. OTR fabricated orthoplast mid forearm wrist cock up with RF /SF bivalve padded finger shea to protect er positioning while travelling to [place] 05/09/24 - 05/16/24. Certification Certification Statement I Certify That: Therapy Services Provided, Therapy Plan Established, Therapy Plan Reviewed Certification Information Clinic ID # [id number] Initial Certification Date 05/07/24 Recertification Due Date 08/05/24 Provider Signature Required Yes Provider Signature Shows Agreement With POC & Medical Necessity Physician NPI Number Write NPI# Here Physician Comment/Change Comment or Changes Physician Signature & Date Requested Please Sign/Date Here
== END 2024-12-17 23:59 | disposition home or self-care (01) ==
PROVIDERS: PCP Family Medicine; Visit Provider Orthopaedic Surgery
DX: Z47.89 Encounter for other orthopedic aftercare (principal); S62.606D Fracture of unspecified phalanx of right little finger, subsequent encounter for fracture with routine healing
CPT/HCPCS: 97035; 97110; 97112; 97140; 97165; 97530; 97535; 97763; L3808; X5282